=== PATIENT | male | born 1980 | race Caucasian/White ===

== ENCOUNTER 2016-07-29 20:47 | Emergency (ER) | payer OTHER ==
--- NOTE | 2016-07-29 21:00 | PDOC ---
History of Present Illness - General History Source: Patient Exam Limitations: No Limitations - History of Present Illness Initial Comments: 07/29/16 21:42 The patient is a 36 year old male, with no significant past medical history, who presents today complaining of partial visual field loss of the eye since 10: 30 this morning. 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 He has all peripheral vision of the left eye. He denies any headache, pain, disorientation, or paresthesias associated with this vision loss. The patient notes that he visited Dr. Kenny in the office this morning, who did a full exam and stated that there was an abnormality with his retina. He has an appointment for a retina specialist tomorrow morning at 9:30am. However, Dr. Kenny recommended that he visit his PCP to get some vascular tests to be sure everything else is ok. The patient is not followed by a PCP and came into the ED. Denies headache, lightheadedness, dizziness. Denies head trauma. Denies paresthesias. Allergies: none PCP: none [employer]: Review of Systems General: No fevers or chills, no weakness, no weight loss HEENT: +partial vision loss in the left eye. No sore throat,. No ear pain CardioVascular: No chest pain or shortness of breath Respiratory:No cough, or wheezing. Gastrointestinal: no nausea, vomiting, diarrhea or constipation, No rectal bleeding Genitourinary: No dysuria, hematuria, or frequency Musculoskeletal: No joint or muscle pain or swelling Neurologic: No headache, vertigo, dizziness or loss of consciousness Psychiatric: nor depression Skin: No rashes or easy bruising Endocrine: no increased thirst or abnormal weight change Allergic: no skin or latex allergy All other systems reviewed and normal Physical Exam: General: Well-nourished well-developed individual, no acute distress HEENT: Throat: Normal, tonsils normal, no erythema or exudate Neck: Supple, no meningeal signs, no lymphadenopathy Eyes: left eye central visual field deficit. Patient has peripheral vision in all 4 barron only. Chest: Nontender to palpation Cardiac: S1-S2 normal, regular rate and rhythm, no murmurs rubs or gallops Respiratory: Lungs clear to auscultation bilateral Abdomen: Soft, nondistended, normal bowel sounds, nontender to palpation diffusely Extremities: Warm, dry, no cyanosis, clubbing, or edema Skin: No rashes Neuro: Alert and oriented x3, nonfocal exam, grossly intact, normal gait Psych: Normal mood and affect <Yuly Goyal - Last Filed: 07/29/16 21:56> - General History Source: Patient Exam Limitations: No Limitations - History of Present Illness Initial Comments: 07/29/16 22:44 A portion of this note was documented by scribe services under my direction. I have reviewed the details of the note, within reason, and agree with the documentation. The case summary and management plan written by me. Assessment and plan: This is a 36-year-old male comes in complaining of one day of visual loss of the central portion of his left visual field. Patient saw his planer setter and the he is referred to see a retinal specialist tomorrow. Patient was sent to the ER to rule out any acute causes of his vision loss. Patient had a head CT that was negative. Patient's blood work was normal including a normal CBC and chemistries. Patient HAD A NEGATIVE C-REACTIVE PROTEIN Dr. sandoval was called the planer setter and discussed case with him. He recommends that patient keep his appointment with his retinal specialist tomorrow, since his workup was negative he can be discharged, and will need further blood work to rule out other causes of his vision loss that are beyond the scope of this ER. <Yelena Denise I - Last Filed: 07/29/16 22:47> - General Chief Complaint: Eye Problem Stated Complaint: LEFT EYE VISION CHANGE Time Seen by Provider: 07/29/16 20:59 Past History <Yuly Goyal - Last Filed: 07/29/16 21:56> - Psycho/Social/Smoking Cessation Hx Anxiety: No Suicidal Ideation: No Smoking Status: No Smoking History: Never smoked Number of Cigarettes Smoked Daily: 0 <Yelena Denise I - Last Filed: 07/29/16 22:47> - Past Medical History Allergies/Adverse Reactions: Allergies Allergy/AdvReac Type Severity Reaction Status Date / Time No Known Allergies Allergy Verified 07/29/16 21:06 Home Medications: Ambulatory Orders No Home Medications 0 dose .ROUTE UTDICT 11/19/12 Aspirin [ASA -] 325 mg PO ONCE 07/29/16 *Physical Exam - Vital Signs Last Vital Signs Temp Pulse Resp BP Pulse Ox 98.4 F 88 15 123/79 100 07/29/16 20:57 07/29/16 20:57 07/29/16 20:57 07/29/16 20:57 07/29/16 20:57 <Yuly Goyal - Last Filed: 07/29/16 21:56> ED Treatment Course - LABORATORY CBC & Chemistry Diagram: 07/29/16 21:15 07/29/16 21:15 - ADDITIONAL ORDERS Additional order review: 07/29/16 21:15 RBC 5.29 MCV 90.7 MCHC 34.1 RDW 11.4 L MPV 8.4 Neutrophils % 57.9 Lymphocytes % 31.3 Monocytes % 8.8 Eosinophils % 0.3 Basophils % 1.7 - RADIOLOGY Radiograph Interpretation: 07/29/16 21:57 CT/HEAD CT WITHOUT CONTRAST HISTORY PROVIDED: Visual field loss TECHNIQUE: Sequential axial images were obtained from the base of the skull to the vertex. There is no evidence of acute intracranial hemorrhage, mass lesions or infarctions. IMPRESSION: Normal CT scan of the head. No evidence of acute intracranial pathology. Reported By: Miles Buckley MD 07/29/162139 <Yuly Goyal - Last Filed: 07/29/16 21:56> - LABORATORY CBC & Chemistry Diagram: 07/29/16 21:15 07/29/16 21:15 <Yelena Denise I - Last Filed: 07/29/16 22:47> *DC/Admit/Observation/Transfer - Attestations Scribe Attestion: 07/29/16 21:43 Documentation prepared by SINTIA Swift, acting as medical sonographer for Yelena Denise MD. <Yuly Goyal - Last Filed: 07/29/16 21:56> - Discharge Dispostion Admit: No <Yelena Denise I - Last Filed: 07/29/16 22:47> Diagnosis at time of Disposition: Vision loss of left eye - Discharge Dispostion Disposition: HOME Condition at time of disposition: Good - Referrals Referrals: Kris Kenny MD [Primary Care Provider] - - Patient Instructions Additional Instructions: When you see the retinal specialist tomorrow take copies of your blood work with you as well as your CAT scan and cardiogram. Return to the emergency department immediately with ANY new, persistent or worsening symptoms. Continue any medications as previously prescribed by your physician. You should follow up with your primary doctor as soon as possible regarding today's emergency department visit. . Please make sure your doctor reviews the results of your emergency evaluation. Thank you for coming to the Emergency Department today for your care. It was a pleasure to see you today. Please note that your evaluation is INCOMPLETE until you follow-up with your doctor.
[2016-07-29 21:05] VITALS: BP 123/79; PULSE 88; TEMP 98.4; BMI 25.0
[2016-07-29 21:22] LABS: BASOPHIL 1.7 % (0-2.0); EOSINOPHIL 0.3 % (0-4.5); MCH 30.9 pg (25.7-33.7); MCHC 34.1 g/dl (32.0-35.9); MEAN CELL VOLUME 90.7 fl (80-96); MEAN PLT VOLUME 8.4 fl (7.5-11.1); NEUTROPHILS 57.9 % (42.8-82.8); PLATELET COUNT 246 K/MM3 (134-434); RDW 11.4 % (11.9-15.9)
[2016-07-29 21:49] LABS: ALBUMIN 4.6 g/dl (3.5-5.0); ALK PHOS 76 U/L (32-92); ANION GAP 11 (8-16); BILIRUBIN,TOTAL 1.5 mg/dl (0.2-1.0); CALCIUM 9.8 mg/dl (8.4-10.2); CO2 25 mmol/L (22-28); CREATININE 0.7 mg/dl (0.6-1.3); GLUCOSE,RANDOM 115 mg/dl (74-106); SGOT/AST 28 U/L (10-42); SGPT/ALT 33 U/L (10-40); TOT PROT 7.9 g/dl (6.4-8.3)
--- NOTE | 2016-08-02 08:41 | EKG ---
Test Reason : Blood Pressure : / mmHG Vent. Rate : 073 BPM Atrial Rate : 073 BPM P-R Int : 128 ms QRS Dur : 090 ms QT Int : 372 ms P-R-T Axes : 073 069 051 degrees QTc Int : 409 ms SINUS RHYTHM RSR' OR QR PATTERN IN V1 SUGGESTS RIGHT VENTRICULAR CONDUCTION DELAY WHEN COMPARED WITH ECG OF 30-OCT-2001 09:54, RSR' pattern is now seen in V1-2 Confirmed by SYLVESTER EDWARDS MD ([id number]) on 08/02/2016 8:40:44 AM Referred By: DR ROSS Confirmed By:SYLVESTER EDWARDS MD
== END 2016-07-29 22:50 | disposition home or self-care (01) ==
LOC: FER 20:47 → SUPCPDRO 20:47 → FER 22:50
DX: H54.7 Unspecified visual loss (principal)
CPT/HCPCS: 36415; 70450-TC; 80053; 85025; 86140; 93005; 99283-25